=== PATIENT | male | born 1980 | race African-American/Black ===

== ENCOUNTER 2017-10-12 18:01 | Emergency (ER) | payer OTHER ==
[~2017-10-12] VITALS: Ht 172.7 cm; Wt 81.6 kg
[2017-10-12 18:02] VITALS: BP 109/71
[2017-10-12] MEDS ORDERED: CEFTRIAXONE 250 MG ONE (19:11)
[2017-10-12] MEDS ORDERED: AZITHROMYCIN 250 MG TABLET ONE (19:12)
[2017-10-12] MEDS ORDERED: LIDOCAINE 1%, 10ML ONE (19:12)
[2017-10-12] MEDS ORDERED: AZITHROMYCIN 500 MG TABLET PO ONE (19:30)
[2017-10-12] MEDS ORDERED: CEFTRIAXONE 250 MG IM ONE (19:30)
== END 2017-10-12 19:36 | disposition home or self-care (01) ==
LOC: ED 19:35
DX: A56.01 Chlamydial cystitis and urethritis (principal); A64 Unspecified sexually transmitted disease
CPT/HCPCS: 96372; 99284; J0696; 87491; 87591

== ENCOUNTER 2018-09-01 10:28 | Emergency (ER) | payer SELFPAY ==
[~2018-09-01] VITALS: Ht 175.3 cm; Wt 87.0 kg
[2018-09-01 10:52] VITALS: BP 131/88
[2018-09-01] MEDS ORDERED: CEFTRIAXONE 250 MG ONE (11:17)
[2018-09-01] MEDS ORDERED: AZITHROMYCIN 500 MG TABLET ONE (11:17)
[2018-09-01 11:30] LABS: CULTURE INDICATED? YES; MICROSCOPIC INDICATED
[2018-09-01] MEDS ORDERED: AZITHROMYCIN 250 MG TABLET PO ONE (11:30)
[2018-09-01] MEDS ORDERED: CEFTRIAXONE 250 MG IM ONE (11:30)
== END 2018-09-01 12:01 | disposition home or self-care (01) ==
LOC: ED 11:50
DX: N34.1 Nonspecific urethritis (principal)
CPT/HCPCS: 81001; 87086; 87491; 87591; 96372; 99283; J0696

== ENCOUNTER 2018-10-09 01:19 | Emergency (ER) | payer SELFPAY ==
[~2018-10-09] VITALS: Ht 175.3 cm; Wt 86.7 kg
[2018-10-09 01:23] VITALS: BP 126/82
[2018-10-09] MEDS ORDERED: AZITHROMYCIN 500 MG TABLET PO STA (01:32)
[2018-10-09] MEDS ORDERED: AZITHROMYCIN 500 MG TABLET ONE (01:54)
[2018-10-09] MEDS ORDERED: CEFTRIAXONE 250 MG ONE (01:54)
[2018-10-09] MEDS ORDERED: CEFTRIAXONE 250 MG IM ONE (02:00)
[2018-10-09 02:04] LABS: CLUE CELLS NONE SEEN (NONE SEEN); WET PREP WBCS FEW (FEW)
== END 2018-10-09 02:43 | disposition home or self-care (01) ==
LOC: ED 02:37
DX: A54.9 Gonococcal infection, unspecified (principal); Z20.2 Contact with and (suspected) exposure to infections with a predominantly sexual mode of transmission; R36.9 Urethral discharge, unspecified
CPT/HCPCS: 36415; 86592; 87210; 87491; 87591; 87808; 96372; 99283; J0696

== ENCOUNTER 2019-05-16 02:32 | Emergency (ER) | payer SELFPAY ==
[~2019-05-16] VITALS: Ht 172.7 cm; Wt 78.4 kg
[2019-05-16] MEDS ORDERED: AZITHROMYCIN 500 MG TABLET ONE (02:53)
[2019-05-16] MEDS ORDERED: CEFTRIAXONE 250 MG ONE (02:53)
[2019-05-16] MEDS ORDERED: AZITHROMYCIN 500 MG TABLET PO ONE (03:00)
[2019-05-16] MEDS ORDERED: CEFTRIAXONE 250 MG IM ONE (03:00)
[2019-05-16 03:33] VITALS: BP 138/70
== END 2019-05-16 03:37 | disposition home or self-care (01) ==
LOC: ED 03:15
DX: R30.0 Dysuria (principal); Z20.2 Contact with and (suspected) exposure to infections with a predominantly sexual mode of transmission
CPT/HCPCS: 96372; 99283; J0696

== ENCOUNTER 2019-08-29 23:41 | Emergency (ER) | payer MEDICAID, OTHER ==
[~2019-08-29] VITALS: Ht 175.3 cm; Wt 81.3 kg
[2019-08-29 23:42] VITALS: BP 113/66
[2019-08-30] MEDS ORDERED: CEFTRIAXONE 250 MG ONE (00:05)
[2019-08-30] MEDS ORDERED: AZITHROMYCIN 500 MG TABLET ONE (00:05)
[2019-08-30] MEDS ORDERED: LIDOCAINE-MPF 1%, 2ML ONE (00:06)
[2019-08-30] MEDS ORDERED: AZITHROMYCIN 500 MG TABLET PO ONE (00:30)
[2019-08-30] MEDS ORDERED: CEFTRIAXONE 250 MG IM ONE (00:30)
== END 2019-08-30 00:19 | disposition home or self-care (01) ==
LOC: ED 23:59
DX: N34.2 Other urethritis (principal); F12.10 Cannabis abuse, uncomplicated; F41.9 Anxiety disorder, unspecified; F17.210 Nicotine dependence, cigarettes, uncomplicated
CPT/HCPCS: 87491; 87591; 96372; 99283; J0696